=== PATIENT | female | born 1960 | race African-American/Black ===

== ENCOUNTER → 2019-01-13 | Day surgery (SDC) | payer OTHER ==
[~2019-01-13] MED LIST: AMBIEN10 MG PO; BENICAR40 MG PO; BUDESONIDE PO; BYSTOLIC20 MG PO; CLONIDINE1 EAC1 PO; DICYCLOMINE PO; FENTANYL CITRATE/PF 100MCG/2 ML INJ ONE; GLUCAGON FOR INJ 1 MG VIAL ONE; HCTZ PO; HUMIRA40 MG/0.8 INJ; LOSARTAN/HCTZ PO; LYRICA150 MG PO; MIDAZOLAM HCL 2 MG/2 ML VIAL ONE; NORCO 10-325 T1 EACH PO; NORVASC5 MG PO; PLAQUENIL200 MG PO; PREMARIN0.625 MG PO; PREMARIN1.25 MG PO; PROPOFOL IV EMULSION 10 MG/ML 50 ML VIAL ONE; ROBAXIN-750750 MG PO; SERTRALINE HCL100 MG PO; SOMA250 MG PO
[2019-01-13 08:48] LABS: WBC,FECAL (FECAL LACTOFERRIN) NEGATIVE (NEGATIVE)
[2019-01-13 09:40] VITALS: BP 169/98
--- OUTSIDE RECORDS SUMMARY | 2019-01-13 09:49 | XMS REPORT | Summary of Care ---
Author Author [facility] Address Unknown Phone Unavailable Encounter HQ Duy(FIN) [id number] Date(s): 12/05/18 - 01/03/19 [facility] Discharge Disposition: Home or Self Care Attending Physician: Oliver Jones Vital Signs No data available for this section Problem List Condition Effective Dates Status Health Status Informant Crohns Active disease(Confirmed) Acid Active reflux(Confirmed) Hypertension(Confirm Resolved ed) HTN Active (hypertension)(Confi rmed) Lupus(Confirmed) Active RA (rheumatoid Active arthritis)(Confirmed ) Torn Active meniscus(Confirmed) Allergies, Adverse Reactions, Alerts Substance Reaction Severity Status sulfa drugs Active Medications No data available for this section Results No data available for this section Immunizations No data available for this section Procedures Procedure Date Related Diagnosis Body Site Status Hysterectomy Completed Social History Social History Type Response Alcohol Past, Previous treatment: None. Smoking Status Former smoker; Exposure to Tobacco Smoke None; Cigarette Smoking Last 365 Days No; Reg Smoking Cessation Counseling No entered on: 10/04/18 Assessment and Plan No data available for this section
--- OUTSIDE RECORDS SUMMARY | 2019-01-13 09:49 | XMS REPORT | Summary of Care ---
Author Author [facility] Address Unknown Phone Unavailable Encounter HQ Fazalr_kaleruben(FIN) [id number] Date(s): 08/09/18 - 09/07/18 [facility] Discharge Disposition: Home or Self Care Attending Physician: Yosef Hanna MD Vital Signs No data available for this section Problem List Condition Effective Dates Status Health Status Informant Hypertension(Confirm Resolved ed) Allergies, Adverse Reactions, Alerts Substance Reaction Severity Status sulfa drugs Active Medications No data available for this section Results No data available for this section Immunizations No data available for this section Procedures No data available for this section Social History No data available for this section Assessment and Plan No data available for this section
--- OUTSIDE RECORDS SUMMARY | 2019-01-13 09:49 | XMS REPORT | Summary of Care ---
Author Author [facility] [place] Organization [facility] [place] Address Unknown Phone Unavailable Encounter HQ Encntr_alias(FIN) [id number] Date(s): 06/21/17 - 06/21/17 [facility] [place] [address] [place] [address]- [phone] Encounter Diagnosis Encounter for screening mammogram for malignant neoplasm of breast (Final) - 06/22/17 Discharge Disposition: Home or Self Care Attending Physician: Claudette Ramsey MD Vital Signs No data available for [...]
--- OUTSIDE RECORDS SUMMARY | 2019-01-13 09:49 | XMS REPORT | Summary of Care ---
Author Author [facility] Organization [facility] Address Unknown Phone Unavailable Encounter GUY Gordillo(MARINA) [id number] Date(s): 10/10/18 - 10/10/18 [facility] [address] [place] [address]- Discharge Disposition: Home or Self Care Attending Physician: Oliver Jones Referring Physician: Oliver Jones Vital Signs 1 2 3 Most recent to oldest [Reference Range]: 167.64 cm (10/04/18 11:40 AM) Height 98.0 DegF (10/04/18 11:40 AM) Temperature Oral [96.4-99.1 DegF] 151/76 mmHg *HI* (10/10/18 10:30 AM) 145/71 mmHg *HI* (10/10/18 10:00 AM) 144/72 mmHg *HI* (10/10/18 9:30 AM) Blood Pressure [90-140/60-90 mmHg] 18 BRMIN (10/10/18 8:15 AM) 15 BRMIN (10/10/18 8:00 AM) 14 BRMIN (10/10/18 7:45 AM) Respiratory Rate [14-20 BRMIN] 70 bpm (10/10/18 6:30 AM) 73 bpm (10/04/18 11:40 AM) Peripheral Pulse Rate [60-100 bpm] 134.091 kg (10/04/18 11:40 AM) Weight 47.71 m2 (10/04/18 11:40 AM) Body Mass Index Problem List Condition Effective Dates Status Health Status Informant Crohns Active disease(Confirmed) Acid Active reflux(Confirmed) Hypertension(Confirm Resolved ed) HTN Active (hypertension)(Confi rmed) Lupus(Confirmed) Active RA (rheumatoid Active arthritis)(Confirmed ) Torn Active meniscus(Confirmed) Allergies, Adverse Reactions, Alerts Substance Reaction Severity Status sulfa drugs Active Medications acetaminophen-hydrocodone 325 mg-5 mg oral tablet Route: PO, Dosing Weight 134.091, kg, Q4H, PRN Pain Score 4-6, Start date: 10/10 7:24:00 CDT, Duration: 30 day, Stop date: 11/09/18 7:23:00 CDT Start Date: 10/10/18 Stop Date: 10/10/18 Status: Discontinued acetaminophen-hydrocodone 325 mg-5 mg oral tablet 1 tab, PO, Q4-6H, PRN Pain, # 24 tab, 0 Refill(s) Start Date: 10/04/18 Stop Date: 10/09/18 Status: Ordered amLODIPine 5 mg oral tablet 5 mg=1 tab, PO, Daily, # 30 tab, 0 Refill(s) Start Date: 10/04/18 Status: Ordered ANES flumazenil 0.2 mg, Route: IVP, PRN, Dosing Weight 134.091, kg, PRN Benzodiazepine Reversal, Initial dose, Start date: 10/10/18 8:15:00 CDT, Duration: 30 day, Stop date: 8:14:00 CDT Start Date: 10/10/18 Stop Date: 10/10/18 Status: Discontinued ANES naloxone 0.4 mg, Route: IVP, Q2MIN, Dosing Weight 134.091, kg, PRN Narcotic Reversal, Sta rt date: 10/10/18 8:15:00 CDT, Duration: 8 doses or times, Stop date: Limited # of times Start Date: 10/10/18 Stop Date: 10/10/18 Status: Discontinued ANES ondansetron 4 mg, Route: IVP, ONCE, Dosing Weight 134.091, kg, PRN Nausea & Vomiting, Start date: 10/10/18 8:15:00 CDT Start Date: 10/10/18 Stop Date: 10/10/18 Status: Discontinued azaTHIOprine 50 mg oral tablet 100 mg=2 tab, PO, Daily, # 180 tab, 0 Refill(s) Start Date: 10/04/18 Status: Ordered budesonide 3 mg oral delayed release capsule 9 mg=3 cap, PO, QAM, 0 Refill(s) Start Date: 10/04/18 Status: Ordered ceFAZolin (ANES) Route: IV, Drug form: INJ, ONCE, Stop date: 10/10/18 7:29:00 CDT Start Date: 10/10/18 Stop Date: 10/10/18 Status: Completed cloNIDine 0.2 mg oral tablet 0.2 mg=1 tab, PO, BID, 0 Refill(s) Start Date: 10/04/18 Status: Ordered dexamethasone (ANES) Route: IV, Drug form: INJ, ONCE, Stop date: 10/10/18 7:49:00 CDT Start Date: 10/10/18 Stop Date: 10/10/18 Status: Completed dicyclomine 20 mg oral tablet 20 mg=1 tab, PO, QID, # 28 tab, 0 Refill(s) Start Date: 10/04/18 Stop Date: 10/11/18 Status: Ordered esmolol (ANES) Route: IV, Drug form: INJ, ONCE, Stop date: 10/10/18 7:49:00 CDT Start Date: 10/10/18 Stop Date: 10/10/18 Status: Completed fentaNYL (ANES) Route: IV, Drug form: INJ, ONCE, Stop date: 10/10/18 7:34:00 CDT Start Date: 10/10/18 Stop Date: 10/10/18 Status: Completed Humira 40 mg/0.8 mL subcutaneous solution 40 mg=0.8 ml, SUB-Q, Q14D, # 1 kit, 0 Refill(s) Start Date: 10/04/18 Status: Ordered hydrochlorothiazide-losartan 25 mg-100 mg oral tablet 1 tab, PO, Daily, # 30 tab, 0 Refill(s) Start Date: 10/04/18 Status: Ordered hydromorphone 0.3 mg, Route: IVP, Q3H, Dosing Weight 134.091, kg, PRN Pain Score 4-6, Start da te: 10/10/18 7:24:00 CDT, Duration: 30 day, Stop date: 11/09/18 7:23:00 CDT Start Date: 10/10/18 Stop Date: 10/10/18 Status: Discontinued hydroxychloroquine sulfate 200 mg oral tablet 400 mg=2 tab, PO, Daily, # 60 tab, 0 Refill(s) Start Date: 10/04/18 Status: Ordered Keflex 500 mg oral capsule 500 mg=1 cap, PO, QID, X 10 day, # 40 cap, 0 Refill(s) Start Date: 10/09/18 Stop Date: 10/19/18 Status: Ordered ketOROLAC 15 mg, Route: IVP, Q6H, Dosing Weight 134.091, kg, Start date: 10/10/18 12:00:00 CDT, Duration: 6 doses or times, Stop date: 10/11/18 18:00:00 CDT Start Date: 10/10/18 Stop Date: 10/10/18 Status: Discontinued ketOROLAC (ANES) IV, ONCE Start Date: 10/10/18 Stop Date: 10/10/18 Status: Completed Lactated Ringers Injection IV (ANES) 1000 mL Route: IV, Total Volume: 1,000, Start date: 10/10/18 6:42:00 CDT, Stop date: 08/25 7:42:00 CDT Start Date: 10/10/18 Stop Date: 10/10/18 Status: Completed Lactated Ringers Injection IV 1,000 mL 1,000 mL, Rate: 25 ml/hr, Infuse over: 40 hr, Route: IV, Dosing Weight 134.091 k g, Total Volume: 1,000, Start date: 10/10/18 6:49:00 CDT, Duration: 1 day, Stop date: 10/11/18 6:48:00 CDT, 2.54, m2 Start Date: 10/10/18 Stop Date: 10/10/18 Status: Discontinued lidocaine (ANES) Route: IV, Drug form: INJ, ONCE, Stop date: 10/10/18 7:34:00 CDT Start Date: 10/10/18 Stop Date: 10/10/18 Status: Completed Lyrica 100 mg oral capsule 100 mg=1 cap, PO, BID, # 60 cap, 1 Refill(s) Start Date: 10/04/18 Status: Ordered methocarbamol 750 mg oral tablet 1,500 mg=2 tab, PO, TID, 0 Refill(s) Start Date: 10/04/18 Status: Ordered midazolam (ANES) Route: IV, Drug form: SOLN, ONCE, Stop date: 10/10/18 7:34:00 CDT Start Date: 10/10/18 Stop Date: 10/10/18 Status: Completed morphine Sulfate 2 mg, Route: IVP, Q3H, Dosing Weight 134.091, kg, PRN Pain Score 1-3, Start date : 10/10/18 7:24:00 CDT, Duration: 30 day, Stop date: 11/09/18 7:23:00 CDT Start Date: 10/10/18 Stop Date: 10/10/18 Status: Discontinued ondansetron (ANES) Route: IV, Drug form: INJ, ONCE, Stop date: 10/10/18 7:49:00 CDT Start Date: 10/10/18 Stop Date: 10/10/18 Status: Completed oxyCODONE 5 mg oral tablet, immediate release 5 mg, 1 tab, Route: PO, POST OP, Dosing Weight 134.091, kg, Start date: 10/10/18 8:27:00 CDT, Duration: 30 day, Stop date: 11/09/18 8:26:00 CDT Start Date: 10/10/18 Stop Date: 10/10/18 Status: Completed Phenergan 12.5 mg, Route: IVPB, Q4H, Dosing Weight 134.091, kg, PRN Nausea & Vomiting, Start date: 10/10/18 7:24:00 CDT, Duration: 30 day, Stop date: 11/09/18 7:23:00 CDT Start Date: 10/10/18 Stop Date: 10/10/18 Status: Discontinued Premarin 1.25 mg oral tablet 1.25 mg=1 tab, PO, Daily, # 30 tab, 0 Refill(s) Start Date: 10/04/18 Status: Ordered propofol (ANES) Route: IV, Drug form: INJ, ONCE, Stop date: 10/10/18 7:34:00 CDT Start Date: 10/10/18 Stop Date: 10/10/18 Status: Completed rocuronium (ANES) Route: IV, Drug form: INJ, ONCE, Stop date: 10/10/18 7:34:00 CDT Start Date: 10/10/18 Stop Date: 10/10/18 Status: Completed sertraline 100 mg oral tablet 100 mg=1 tab, PO, Daily, # 30 tab, 0 Refill(s) Start Date: 10/04/18 Status: Ordered succinylcholine (ANES) Route: IV, Drug form: INJ, ONCE, Stop date: 10/10/18 7:34:00 CDT Start Date: 10/10/18 Stop Date: 10/10/18 Status: Completed tramadol 50 mg, Route: PO, Drug form: TAB, Q6H, Dosing Weight 134.091, kg, PRN Pain Score 1-3, Start date: 10/10/18 7:24:00 CDT, Duration: 30 day, Stop date: 11/09/18 7: 23:00 CDT Start Date: 10/10/18 Stop Date: 10/10/18 Status: Discontinued triamcinolone topical 0.025% cream TOP, TID, 0 Refill(s) Start Date: 10/04/18 Status: Ordered Vitamin D3 5000 intl units oral tablet 5,000 IntlUnit=1 tab, PO, Daily, 0 Refill(s) Start Date: 10/04/18 Status: Ordered Zofran 4 mg, Route: IV, Drug form: INJ, Q4H, Dosing Weight 134.091, kg, PRN Nausea, Sta rt date: 10/10/18 7:24:00 CDT, Duration: 30 day, Stop date: 11/09/18 7:23:00 CDT Start Date: 10/10/18 Stop Date: 10/10/18 Status: Discontinued Results Most recent to 1 oldest [Reference Range]: Neutrophils # 5.1 K/CMM [1.5-8.1 K/CMM] (10/04/18 11:43 AM) Lymphocytes # 2.0 K/CMM [1.0-5.5 K/CMM] (10/04/18 11:43 AM) Monocytes # [0.0-0.8 0.9 K/CMM K/CMM] *HI* (10/04/18 11:43 AM) Eosinophils # 0.1 K/CMM [0.0-0.5 K/CMM] (10/04/18 11:43 AM) Basophils # [0.0-0.2 0.1 K/CMM K/CMM] (5/29/19 11:43 AM) eGFR 63 mL/min/1.73m2 1 *NA* (10/04/18 AM) AGAP [10.0-20.0 7.2 mEq/L mEq/L] *LOW* (10/04/18 AM) Basophils [0.0-1.0 1.2 % %] *HI* (10/04/18 AM) BUN [7-22 mg/dL] 21 mg/dL (10/04/18 AM) Calcium Lvl 9.1 mg/dL [8.5-10.5 mg/dL] (10/04/18 AM) Chloride Lvl [95-109 108 mEq/L mEq/L] (10/04/18 AM) CO2 [24-32 mEq/L] 30 mEq/L (10/04/18 AM) Creatinine Lvl 1.12 mg/dL [0.50-1.40 mg/dL] (10/04/18 AM) Eosinophils [0.0-4.0 1.6 % %] (10/04/18 AM) Glucose Lvl [70-99 75 mg/dL mg/dL] (10/04/18 AM) Hct [36.0-48.0 %] 39.3 % (10/04/18 AM) Hgb [12.0-16.0 g/dL] 12.9 g/dL (10/04/18 AM) Potassium Lvl 3.2 mEq/L [3.5-5.1 mEq/L] *LOW* (10/04/18 AM) Lymphocytes 24.4 % [20.0-40.0 %] (10/04/18 AM) MCH [27.0-31.0 pg] 28.3 pg (10/04/18 AM) MCHC [32.0-36.0 32.8 g/dL g/dL] (10/04/18 AM) MCV [80.0-98.0 fL] 86.2 fL (10/04/18 AM) Monocytes [2.0-12.0 10.5 % %] (5/29/19 11:43 AM) MPV [7.4-10.4 fL] 8.4 fL (10/04/18 11:43 AM) Sodium Lvl [135-145 142 mEq/L mEq/L] (10/04/18 11:43 AM) Platelet [133-450 277 K/CMM K/CMM] (10/04/18 11:43 AM) Segs [45.0-75.0 %] 62.3 % (10/04/18 11:43 AM) RBC [4.20-5.40 4.56 M/CMM M/CMM] (10/04/18 11:43 AM) RDW [11.5-14.5 %] 14.4 % (10/04/18 11:43 AM) WBC [3.7-10.4 K/CMM] 8.3 K/CMM (10/04/18 11:43 AM) 1Result Comment: The eGFR is calculated using the CKD-EPI formula. In most young, healthy individuals the eGFR will be >90 mL/min/1.73m2. The eGFR declines with age. An eGFR of 60-89 may be normal in some populations, particularly the elderly, for whom the CKD-EPI formula has not been extensively validated. Use of the eGFR is not recommended in the following populations: Individuals with unstable creatinine concentrations, including patients and those with serious co-morbid conditions. Patients with extremes in muscle mass or diet. The data above are obtained from the National Kid[employer] Education Program ( NKDEP) which additionally recommends that when the eGFR is used in patients with extremes of body mass index for purposes of drug dosing, the eGFR should be mul tiplied by the estimated BMI. Immunizations No data available for this section [...]
--- OUTSIDE RECORDS SUMMARY | 2019-01-13 09:49 | XMS REPORT | Continuity of Care Document ---
Author Author [employer] Address Unknown Phone Unavailable Care Team Providers Care Longwall Shearer Operator Name Role Phone [employer] Unavailable Unavailable Problems Problem Status Onset Date Classification Date Reported Comments Source KNEE Active 10/20/2018 [facility] S83.231A Active 10/10/2018 [facility] KNEE ARTHROSCOPY Active 09/26/2018 [facility] LBP, EBER HIP PAIN,LT KNEE Active 08/02/2018 [facility] M25.551 - PAIN IN RIGHT HIP Active 07/04/2018 ISI Mastersa Encounter for screening mammogram for malignant neoplasm of breast 06/23/2017 09/27/2017 ISI Lewis Z12.39 - ENCOUNTER FOR OTH SCREENING FO Active 06/21/2017 ISI Lewis BURN Active 08/29/2012 [facility] Hypertensive disorder, systemic arterial (disorder) Resolved Problem 01/05/2019 ISI Lewis,[facility] Hypertension Resolved Problem 08/31/2012 [facility] Crohn's disease (disorder) Active Problem 01/05/2019 [facility] Gastroesophageal reflux disease (disorder) Active Problem 01/05/2019 [facility] Lupus erythematosus (disorder) Active Problem 01/05/2019 [facility] Rheumatoid arthritis (disorder) Active Problem 01/05/2019 [facility] Tear of meniscus of knee (disorder) Active Problem 01/05/2019 [facility] Medications Medication Details Route Status Patient Instructions Ordering Provider Order Date Source Ketorolac 15 mg, Route: IVP, Q6H, Dosing Weight 134.091, kg, Start date: 10/10/18 12:00:00 CDT, Duration: 6 doses or times, Stop date: 10/11/18 18:00:00 CDT Inactive 10/10/2018 [facility] Oxycodone Hydrochloride 5 MG Oral Tablet 5 mg, 1 tab, Route: PO, POST OP, Dosing Weight 134.091, kg, Start date: 10/10/18 8:27:00 CDT, Duration: 30 day, Stop date: 11/09/18 8:26:00 CDT Inactive 10/10/2018 [facility] Ondansetron 4 mg, Route: IVP, ONCE, Dosing Weight 134.091, kg, PRN Nausea & Vomiting, Start date: 10/10/18 8:15:00 CDT Inactive 10/10/2018 [facility] Flumazenil 0.2 mg, Route: IVP, PRN, Dosing Weight 134.091, kg, PRN Benzodiazepine Reversal, Initial dose, Start date: 10/10/18 8:15:00 CDT, Duration: 30 day, Stop date: 11/09/18 8:14:00 CDT Inactive 10/10/2018 [facility] Naloxone 0.4 mg, Route: IVP, Q2MIN, Dosing Weight 134.091, kg, PRN Narcotic Reversal, Start date: 10/10/18 8:15:00 CDT, Duration: 8 doses or times, Stop date: Limited # of times Inactive 10/10/2018 [facility] ketOROLAC (ANES) IV, ONCE Inactive 10/10/2018 [facility] dexamethasone (ANES) Route: IV, Drug form: INJ, ONCE, Stop date: 10/10/18 7:49:00 CDT Inactive 10/10/2018 [facility] ondansetron (ANES) Route: IV, Drug form: INJ, ONCE, Stop date: 10/10/18 7:49:00 CDT Inactive 10/10/2018 [facility] esmolol (ANES) Route: IV, Drug form: INJ, ONCE, Stop date: 10/10/18 7:49:00 CDT Inactive 10/10/2018 [facility] succinylcholine (ANES) Route: IV, Drug form: INJ, ONCE, Stop date: 10/10/18 7:34:00 CDT Inactive 10/10/2018 [facility] rocuronium (ANES) Route: IV, Drug form: INJ, ONCE, Stop date: 10/10/18 7:34:00 CDT Inactive 10/10/2018 [facility] propofol (ANES) Route: IV, Drug form: INJ, ONCE, Stop date: 10/10/18 7:34:00 CDT Inactive 10/10/2018 [facility] fentaNYL (ANES) Route: IV, Drug form: INJ, ONCE, Stop date: 10/10/18 7:34:00 CDT Inactive 10/10/2018 [facility] lidocaine (ANES) Route: IV, Drug form: INJ, ONCE, Stop date: 10/10/18 7:34:00 CDT Inactive 10/10/2018 [facility] midazolam (ANES) Route: IV, Drug form: SOLN, ONCE, Stop date: 10/10/18 7:34:00 CDT Inactive 10/10/2018 [facility] ceFAZolin (ANES) Route: IV, Drug form: INJ, ONCE, Stop date: 10/10/18 7:29:00 CDT Inactive 10/10/2018 [facility] Phenergan 12.5 mg, Route: IVPB, Q4H, Dosing Weight 134.091, kg, PRN Nausea & Vomiting, Start date: 10/10/18 7:24:00 CDT, Duration: 30 day, Stop date: 11/09/18 7:23:00 CDT Inactive 10/10/2018 [facility] Zofran 4 mg, Route: IV, Drug form: INJ, Q4H, Dosing Weight 134.091, kg, PRN Nausea, Start date: 10/10/18 7:24:00 CDT, Duration: 30 day, Stop date: 11/09/18 7:23:00 CDT Inactive 10/10/2018 [facility] Acetaminophen 325 MG / Hydrocodone Bitartrate 5 MG Oral Tablet Route: PO, Dosing Weight 134.091, kg, Q4H, PRN Pain Score 4-6, Start date: 10/10/18 7:24:00 CDT, Duration: 30 day, Stop date: 11/09/18 7:23:00 CDT Inactive 10/10/2018 [facility] Tramadol 50 mg, Route: PO, Drug form: TAB, Q6H, Dosing Weight 134.091, kg, PRN Pain Score 1-3, Start date: 10/10/18 7:24:00 CDT, Duration: 30 day, Stop date: 11/09/18 7:23:00 CDT Inactive 10/10/2018 [facility] Hydromorphone 0.3 mg, Route: IVP, Q3H, Dosing Weight 134.091, kg, PRN Pain Score 4-6, Start date: 10/10/18 7:24:00 CDT, Duration: 30 day, Stop date: 11/09/18 7:23:00 CDT Inactive 10/10/2018 [facility] Morphine 2 mg, Route: IVP, Q3H, Dosing Weight 134.091, kg, PRN Pain Score 1-3, Start date: 10/10/18 7:24:00 CDT, Duration: 30 day, Stop date: 11/09/18 7:23:00 CDT Inactive 10/10/2018 [facility] Calcium Chloride 0.0014 MEQ/ML / Potassium Chloride 0.004 MEQ/ML / Sodium Chloride 0.103 MEQ/ML / Sodium Lactate 0.028 MEQ/ML Injectable Solution 1,000 mL, Rate: 25 ml/hr, Infuse over: 40 hr, Route: IV, Dosing Weight 134.091 kg, Total Volume: 1,000, Start date: 10/10/18 6:49:00 CDT, Duration: 1 day, Stop date: 10/11/18 6:48:00 CDT, 2.54, m2 Inactive 10/10/2018 [facility] Lactated Ringers Injection IV (ANES) 1000 mL Route: IV, Total Volume: 1,000, Start date: 10/10/18 6:42:00 CDT, Stop date: 10/10/18 7:42:00 CDT Inactive 10/10/2018 [facility] Cephalexin 500 MG Oral Capsule [Keflex] 500 mg=1 cap, PO, QID, X 10 day, # 40 cap, 0 Refill(s) Active 10/09/2018 [facility] Triamcinolone Acetonide 0.25 MG/ML Topical Cream TOP, TID, 0 Refill(s) Active 10/04/2018 [facility] sertraline 100 mg oral tablet 100 mg=1 tab, PO, Daily, # 30 tab, 0 Refill(s) Active 10/04/2018 [facility] Vitamin D3 5000 intl units oral tablet 5,000 IntlUnit=1 tab, PO, Daily, 0 Refill(s) Active 10/04/2018 [facility] pregabalin 100 MG Oral Capsule [Lyrica] 100 mg=1 cap, PO, BID, # 60 cap, 1 Refill(s) Active 10/04/2018 [facility] Hydrochlorothiazide 25 MG / Losartan Potassium 100 MG Oral Tablet 1 tab, PO, Daily, # 30 tab, 0 Refill(s) Active 10/04/2018 [facility] Estrogens, Conjugated (HALF-WAY) 1.25 MG Oral Tablet [Premarin] 1.25 mg=1 tab, PO, Daily, # 30 tab, 0 Refill(s) Active 10/04/2018 [facility] methocarbamol 750 mg oral tablet 1,500 mg=2 tab, PO, TID, 0 Refill(s) Active 10/04/2018 [facility] Hydroxychloroquine Sulfate 200 MG Oral Tablet 400 mg=2 tab, PO, Daily, # 60 tab, 0 Refill(s) Active 10/04/2018 [facility] Acetaminophen 325 MG / Hydrocodone Bitartrate 5 MG Oral Tablet 1 tab, PO, Q4-6H, PRN Pain, # 24 tab, 0 Refill(s) Active 10/04/2018 [facility] 0.8 ML adalimumab 50 MG/ML Prefilled Syringe [Humira] 40 mg=0.8 ml, SUB-Q, Q14D, # 1 kit, 0 Refill(s) Active 10/04/2018 [facility] dicyclomine 20 mg oral tablet 20 mg=1 tab, PO, QID, # 28 tab, 0 Refill(s) Active 10/04/2018 [facility] amLODIPine 5 mg oral tablet 5 mg=1 tab, PO, Daily, # 30 tab, 0 Refill(s) Active 10/04/2018 [facility] Clonidine Hydrochloride 0.2 MG Oral Tablet 0.2 mg=1 tab, PO, BID, 0 Refill(s) Active 10/04/2018 [facility] budesonide 3 mg oral delayed release capsule 9 mg=3 cap, PO, QAM, 0 Refill(s) Active 10/04/2018 [facility] azaTHIOprine 50 mg oral tablet 100 mg=2 tab, PO, Daily, # 180 tab, 0 Refill(s) Active 10/04/2018 [facility] Silvadene 1% topical cream 1 appl, Route: TOP, ONCE, Priority: Stat, Start date: 08/29/12 10:58:00, Stop date: 08/29/12 10:58:00 TOP No Longer Active Short 08/29/2012 [facility] [place] 10/325 oral tablet 1 tab, Route: PO, Drug Form: TAB, Dosing Weight 131.818, kg, ONCE, Start date: 08/29/12 10:56:00, Stop date: 08/29/12 10:56:00 PO No Longer Active Short 08/29/2012 [facility] [place] 10/325 oral tablet 1 tab, PO, Q6H, PRN, 15 tab, for pain, Substitution Allowed, Maintenance PO Active Short 08/29/2012 [facility] Silvadene 1% topical cream 1 appl, TOP, BID, 20 gm, Substitution Allowed, CRM TOP Active Short 08/29/2012 [facility] morphine Sulfate 2 mg, Route: IVP, Drug form: INJ, ONCE, Dosing Weight 131.818, kg, Priority: STAT, Start date: 08/29/12 9:38:00, Stop date: 08/29/12 9:38:00 IVP No Longer Active Short 08/29/2012 [facility] Zofran 4 mg, Route: IVP, Drug form: INJ, ONCE, Dosing Weight 131.818, kg, Priority: STAT, Start date: 08/29/12 9:09:00, Stop date: 08/29/12 9:09:00 IVP No Longer Active Short 08/29/2012 [facility] morphine Sulfate 4 mg, Route: IVP, ONCE, Dosing Weight 131.818, kg, Start date: 08/29/12 9:08:00, Stop date: 08/29/12 9:08:00 IVP No Longer Active Short 08/29/2012 [facility] NS (Bolus) IV 1000 mL 1,000 mL, Rate: 1,000 ml/hr, Infuse over: 1 hr, Route: IV, Dosing Weight 131.818 kg, Total Volume: 1,000, Priority: STAT, Start date: 08/29/12 9:08:00, Duration: 1 doses or times, Stop date: 08/29/12 10:07:00, Bolus DoseBolus Dose IV No Longer Active Short 08/29/2012 [facility] Allergies, Adverse Reactions, Alerts Substance Category Reaction Severity Reaction type Status Date Reported Comments Source sulfa drugs Assertion Drug allergy Active [facility] Immunizations No Data Provided for This Section Results Order Name Results Value Reference Range Date Interpretation Comments Source CHEM PANEL eGFR 63 10/04/2018 Result Comment: The eGFR is calculated using the [...] from the National Kidney Disease Education Program (NKDEP) which additionally recommends that when the eGFR is used in patients with extremes of body mass index for purposes of drug dosing, the eGFR should be multiplied by the estimated BMI. [facility] CHEM PANEL Sodium Lvl 142 135 - 145 10/04/2018 [facility] CHEM PANEL Potassium Lvl 3.2 3.5 - 5.1 10/04/2018 [facility] CHEM PANEL Glucose Lvl 75 70 - 99 10/04/2018 [facility] CHEM PANEL Creatinine Lvl 1.12 0.50 - 1.40 10/04/2018 [facility] CHEM PANEL BUN 21 7 - 22 10/04/2018 [facility] CHEM PANEL CO2 30 24 - 32 10/04/2018 [facility] CHEM PANEL Chloride Lvl 108 95 - 109 10/04/2018 [facility] CHEM PANEL Calcium Lvl 9.1 8.5 - 10.5 10/04/2018 [facility] CHEM PANEL AGAP 7.2 10.0 - 20.0 10/04/2018 [facility] HEMATOLOGY Eosinophils # 0.1 0.0 - 0.5 10/04/2018 [facility] HEMATOLOGY Basophils # 0.1 0.0 - 0.2 10/04/2018 [facility] HEMATOLOGY Monocytes # 0.9 0.0 - 0.8 10/04/2018 [facility] HEMATOLOGY Neutrophils # 5.1 1.5 - 8.1 10/04/2018 [facility] Lymphocytes 24.4 20.0 - 40.0 10/04/2018 [facility] Lymphocytes # 2.0 1.0 - 5.5 10/04/2018 [facility] HEMATOLOGY Basophils 1.2 0.0 - 1.0 10/04/2018 [facility] Monocytes 10.5 2.0 - 12.0 10/04/2018 [facility] HEMATOLOGY Eosinophils 1.6 0.0 - 4.0 10/04/2018 [facility] Segs 62.3 45.0 - 75.0 10/04/2018 [facility] WBC 8.3 3.7 - 10.4 10/04/2018 [facility] RBC 4.56 4.20 - 5.40 10/04/2018 [facility] MCH 28.3 27.0 - 31.0 10/04/2018 [facility] MCHC 32.8 32.0 - 36.0 10/04/2018 [facility] RDW 14.4 11.5 - 14.5 10/04/2018 [facility] MPV 8.4 7.4 - 10.4 10/04/2018 [facility] Platelet 277 133 - 450 10/04/2018 [facility] MCV 86.2 80.0 - 98.0 10/04/2018 [facility] Hgb 12.9 12.0 - 16.0 10/04/2018 [facility] Hct 39.3 36.0 - 48.0 10/04/2018 [facility] Pathology Reports No Data Provided for This Section Diagnostic Reports Report Value Date Source Knee 1-2 Views unilateral DX EXAM: Knee 1-2 Views unilateral DX HISTORY: - M25.562 Pain in left knee COMPARISON: None 2 views of the left knee. FINDINGS: There is moderate medial tibiofemoral joint space narrowing with subchondral sclerosis of the medial tibial plateau. There is moderate tricompartmental osteophyte formation and trace joint effusion. IMPRESSION: Tricompartmental osteophyte formation and medial tibiofemoral degenerative change. 07/04/2018 KELLY Lewis Hip bilat w pelvis and both lat hips DX EXAM: Hip bilat w pelvis and both lat hips DX HISTORY: - M25.551 Pain in right hip; M25.552 Pain in left hip COMPARISON: None AP pelvis and AP and lateral views of both hips. FINDINGS: There is mild joint space narrowing of the left hip. Moderate osteophyte formation of both hips. No fracture is seen. Alignment is normal. IMPRESSION: Moderate bilateral hip osteophyte formation. Mild left hip joint space narrowing. 07/04/2018 ISI Lewis Breast Mammo Scrn EBER incl CAD MA BILATERAL DIGITAL SCREENING MAMMOGRAM WITH CAD: 06/21/2017 CLINICAL: Routine/Screening. Current study was evaluated with a Computer Aided Detection (CAD) system. COMPARISON:No prior exams were available for comparison. TECHNIQUE: Mammographic views were obtained using digital acquisition. Current study was also evaluated with a Computer Aided Detection (CAD) system. FINDINGS: There are scattered fibroglandular densities in both breasts. No significant masses, calcifications, or other findings are seen in either breast. IMPRESSION: NEGATIVE RECOMMENDATION:There is no mammographic evidence of malignancy. A 1 year screening mammogram is recommended.(06/22/2018) This exam was interpreted at [id number] at [facility]. Professional services are provided by the [facility]. Lena Nieto M.D. to/penrad:06/22/2017 08:47:47 Land Commissioner(s): RT Flash(R)(M), [facility] letter sent: BI-RADS 1/2 Mammogram BI-RADS: 1 Negative 06/21/2017 ISI Lewis Consultation Notes No Data Provided for This Section Discharge Summaries No Data Provided for This Section History and Physicals No Data Provided for This Section Vital Signs Vital Sign Value Date Comments Source Systolic (mm Hg) 151 10/10/2018 [facility] Diastolic (mm Hg) 76 10/10/2018 [facility] Systolic (mm Hg) 145 10/10/2018 [facility] Diastolic (mm Hg) 71 10/10/2018 [facility] Systolic (mm Hg) 144 10/10/2018 [facility] Diastolic (mm Hg) 72 10/10/2018 [facility] Respitory Rate 18 10/10/2018 [facility] Respitory Rate 15 10/10/2018 [facility] Respitory Rate 14 10/10/2018 [facility] Heart Rate 70 10/10/2018 [facility] Weight 134.091 10/04/2018 [facility] Height 167.64 cm 10/04/2018 [facility] BMI Calculated 47.71 10/04/2018 [facility] Heart Rate 73 10/04/2018 [facility] Temperature Oral (F) 98.0 F 10/04/2018 [facility] Height 167.64 cm 08/29/2012 [facility] Weight 131.818 08/29/2012 [facility] Encounters Location Location Details Encounter Type Encounter Number Reason For Visit Attending Provider ADM Date DC Date Status Source [facility] Emergency [id number] ROSENDO SÁNCHEZ 08/29/2012 08/29/2012 Discharged [facility] [place] [facility] [id number] Claudette Ramsey 06/21/2017 06/22/2017 [facility] [place] [facility] [place] [facility] [id number] Hal Vela 07/04/2018 07/05/2018 [facility] [place] [facility] OP Therapy Patients [id number] Basetaran Hamid 08/09/2018 09/08/2018 [facility] Day Surgery [id number] Oliver Jones 10/10/2018 10/10/2018 [facility] OP Therapy Patients [id number] Oliver Jones 11/03/2018 12/03/2018 [facility] OP Therapy Patients [id number] Oliver Jones 12/05/2018 01/04/2019 [facility] Procedures Procedure Code Date Perfomer Comments Source Hysterectomy [id number] [facility] Assessment and Plan No Data Provided for This Section Plan of Care No Data Provided for This Section Social History Social History Date Source Social History TypeResponse Alcohol Past, Previous treatment: None. Smoking Status Former smoker; Exposure to Tobacco Smoke None; Cigarette Smoking Last 365 Days No; Reg Smoking Cessation Counseling No entered on: 10/04/18 10/04/2018 [facility] Social History TypeResponse Alcohol Past, Previous treatment: None. Smoking Status Former smoker; Exposure to Tobacco Smoke None; Cigarette Smoking Last 365 Days No; Reg Smoking Cessation Counseling No entered on: 10/04/18 10/04/2018 [facility] No data available for this section 07/05/2018 [facility] [place] Family History No Data Provided for This Section Advance Directives No Data Provided for This Section Functional Status No Data Provided for This Section
--- OUTSIDE RECORDS SUMMARY | 2019-01-13 09:49 | XMS REPORT | CCD ---
Author Author Auto Generated Organization [facility] Address Unknown Phone Unavailable Care Team Providers Care Poultry Culler Name Role Phone Marky Ware CP Allergies, Adverse Reactions, Alerts Substance Reaction Status sulfa drugs Active Problem List Condition Effective Dates Status Hypertension Resolved Medications Medication Instructions Start Date End Date Status [place] 10/325 oral 1 tab, Route: PO, Drug Form: TAB, 08/29/2012 08/29/2012 Completed tablet Dosing Weight 131.818, kg, ONCE, Start date: 08/29/12 10:56:00, Stop date: 08/29/12 10:56:00 Zofran 4 mg, Route: IVP, Drug form: INJ, 08/29/2012 08/29/2012 Completed ONCE, Dosing Weight 131.818, kg, Priority: STAT, Start date: 08/29/12 9:09:00, Stop date: 08/29/12 9:09:00 morphine Sulfate 4 mg, Route: IVP, ONCE, Dosing 08/29/2012 08/29/2012 Completed Weight 131.818, kg, Start date: 08/29/12 9:08:00, Stop date: 08/29/12 9:08:00 NS (Bolus) IV 1000 1,000 mL, Rate: 1,000 ml/hr, Infuse 08/29/2012 08/29/2012 Completed mL over: 1 hr, Route: IV, Dosing Weight 131.818 kg, Total Volume: 1,000, Priority: STAT, Start date: 08/29/12 9:08:00, Duration: 1 doses or times, Stop date: 08/29/12 10:07:00, Bolus Dose Bolus Dose [place] 10/325 oral 1 tab, PO, Q6H, PRN, 15 tab, for 08/29/2012 Ordered tablet pain, Substitution Allowed, Maintenance Silvadene 1% topical 1 appl, TOP, BID, 20 gm, 08/29/2012 Ordered cream Substitution Allowed, CRM Silvadene 1% topical 1 appl, Route: TOP, ONCE, Priority: 08/29/2012 08/29/2012 Completed cream Stat, Start date: 08/29/12 10:58:00, Stop date: 08/29/12 10:58:00 morphine Sulfate 2 mg, Route: IVP, Drug form: INJ, 08/29/2012 08/29/2012 Completed ONCE, Dosing Weight 131.818, kg, Priority: STAT, Start date: 08/29/12 9:38:00, Stop date: 08/29/12 9:38:00 Vital Signs Most recent to oldest [Reference Range]: 1 Height 167.64 cm (08/29/2012 08:58:00) Weight 131.818 kg (08/29/2012 08:58:00)
--- OUTSIDE RECORDS SUMMARY | 2019-01-13 09:49 | XMS REPORT | Summary of Care ---
Author Author [facility] [place] Organization [facility] [place] Address Unknown Phone Unavailable Encounter HQ Encntr_kaleruben(FIN) [id number] Date(s): 07/04/18 - 07/04/18 [facility] [place] [address] [place] [address]- 7 [phone] Discharge Disposition: Home or Self Care Attending Physician: Hal Vela MD Referring Physician: Hal Vela MD Vital Signs No data available for [...]
--- OUTSIDE RECORDS SUMMARY | 2019-01-13 09:50 | XMS REPORT | Summary of Care ---
Author Author [facility] Address Unknown Phone Unavailable Encounter HQ Duy(FIN) [id number] Date(s): 11/03/18 - 12/02/18 [facility] Discharge Disposition: Home or Self Care [...]
--- OUTSIDE RECORDS SUMMARY | 2019-01-13 09:50 | XMS REPORT ---
Author Author [facility] Address Unknown Phone Unavailable Care Team Providers Care Sharepoint Trainer Name Role Phone Unavailable Unavailable Payers Payer Name Policy Type Policy Number Effective Date Expiration Date Problems This patient has no known problems. Allergies, Adverse Reactions, Alerts This patient has no known allergies or adverse reactions. Medications This patient has no known medications. Encounters Start Date/Time End Date/Time Encounter Type Admission Type Attending [facility] Care Department Encounter ID 2018-10-10 05:21:00 2018-10-10 05:21:00 Outpatient [id number] Results Test Description Test Time Test Comments Text Results Atomic Results Result Comments - MRI LW JNT W/O CONT RT 2018-09-13 10:49:00 FAX: Pavel Lr [phone] [place]: St: REG Name: JOSE RAMON SALAZAR [facility] : 1960 Age/S: 58/F [address] Unit #: [id number] Loc: [place] [address] Phys: Pavel Cifuentes DO Acct: [id number] Dis Date: Status: REG CLI PHONE #: [phone] Exam Date: 09/13/2018 0938 FAX #: [phone] Reason: M17.11 EXAMS: CPT CODE: [id number] MRI LW JNT W/[place] [id number] HISTORY: . COMPARISON: None available. MRI right knee without contrast: The quadriceps and the patellar tendons are intact. Infrapatellar Hoffa's fat, prefemoral fat and the quadriceps fat are without impingement or edema. No bone bruise or acute fracture or osteochondral lesions are noted. Intact ACL and PCL. Large radial tear of the anterior horn of the medial meniscus with moderate truncation and meniscal extrusion into the medial recess. Mucoid degeneration of the posterior horn without tear. Lateral meniscus demonstrating radial tears of the free edge of both the anterior and posterior horns with mild truncation. MCL and LCL complex are symmetrical and normal. Popliteus tendon is unremarkable. The musculature demonstrating normal signal. Mild subcutaneous edema. Medial and the lateral retinaculum are intact. Multiple cartilaginous defects within the medial and the lateral patellar facets are near full-thickness. Trochlear cartilage defects as well. Marked thinning of the articular cartilage in the weightbearing portion bilaterally. Physiologic joint fluid. No popliteal cyst. IMPRESSION: Large radial tear of the anterior horn of the medial meniscus with meniscal extrusion into the medial recess. Degenerative signal and mucoid degeneration of the posterior horn. Small radial tears of the free edge of both anterior and posterior horns of the lateral meniscus with mild truncation. Near full-thickness defects of both medial and lateral patellar facet cartilage and thinning of the articular cartilage of both the medial and the lateral compartment in the weightbearing portions. Intact ACL and PCL and LCL and MCL complex. No popliteal cyst. at 1049 Reported and signed by: Job Trivedi M.D. PAGE 1 Signed Report (CONTINUED) FAX: Pavel Lr [phone] [place]: B St: REG Name: JOSE RAMON SALAZAR [facility] : 1960 Age/S: 58/F [address] Unit #: [id number] Loc: V.MRI [place], [place] [address] Phys: Pavel Cifuentes DO Acct: [id number] Dis Date: Status: REG CLI PHONE #: [phone] Exam Date: 09/13/2018 0938 FAX #: [phone] Reason: M17.11 EXAMS: CPT CODE: [id number] MRI LW JNT W/[place] [id number] <Continued> CC: Pavel Cifuentes Technologist: Cherelle Cooper)(MR) Trnscrd Date/Time/By: 09/13/2018 (1049) : By: [email or web address] Orig Print D/T: S: 09/13/2018 (5037) PAGE 2 Signed Report
--- NOTE | 2019-01-13 12:12 | Operative Report ---
DATE OF PROCEDURE: 01/13/2019 SURGEON: Pritesh Bolden MD PROCEDURES: EGD with biopsies and colonoscopy with biopsies. INDICATIONS FOR EGD: Upper abdominal pain, heartburn. INDICATIONS FOR COLONOSCOPY: History of Crohn disease, bright red blood per rectum. MEDICATIONS: The patient was done under MAC, please see anesthesiologist's note. PROCEDURE IN DETAIL: With the patient in left lateral decubitus position, a flexible fiberoptic Olympus gastroscope was introduced into the esophagus under direct visualization without any difficulty. There was some patchy erythema noted in distal esophagus. The scope was then advanced with ease into the stomach traversing a small sliding hiatal hernia. The mucosa overlying the antrum and the body revealed some patchy intense erythema and low-grade to moderate edema, and biopsies were obtained and sent to stain for H. pylori. Pylorus was of normal contour and shape, it was intubated with ease and the scope was advanced all the way to the second portion of the duodenum. Biopsies were obtained from the second portion and the duodenal bulb to rule out sprue. The scope was then withdrawn back into the stomach and retroflexed and mucosa overlying the fundus and the cardia appeared to be within normal limits. The scope was then straightened out, it was subsequently withdrawn, and the patient tolerated the procedure well. IMPRESSION: 1. Distal esophagitis, mild. 2. Small sliding hiatal hernia. 3. Gastritis, biopsied, biopsies sent to stain for Helicobacter pylori. 4. Rule out sprue. PLAN: Follow up histology. Initiate Protonix 40 mg one p.o. q.a.m. before meals. The patient was then turned around and after adequate lubrication of the anal canal, a flexible fiberoptic Olympus colonoscope was inserted into the rectum with ease and advanced all the way to the cecum. Mucosa overlying the cecum revealed some diffuse erythema and low-grade edema and biopsies were obtained. The ileocecal valve was intubated and the scope was advanced into the terminal ileum. The mucosa overlying the terminal ileum revealed some diffuse erythema and low-grade edema. No ulcerations were noted and no strictures, biopsies were obtained. The scope was then withdrawn back into the colon. It was then withdrawn slowly, mucosa overlying the ascending and the transverse grossly was unremarkable. There was some mild patchy erythema and low-grade edema noted in the descending and a segment of the descending colon and biopsies were obtained. Diverticular disease was noted in the distal descending and the sigmoid colon. The rectum appeared to be within normal limits. The scope was then retroflexed into the distal rectum and moderate-sized internal hemorrhoids were noted, none of which was actively bleeding. The scope was then straightened out, it was subsequently withdrawn, and the patient tolerated the procedure well. IMPRESSION: 1. Mild segmental colitis, descending colon. 2. Diverticulosis. 3. Internal hemorrhoids, none actively bleeding. PLAN: Follow up histology. Follow up stool studies. Check IBD panel, CRP, and sedimentation rate. Continue Humira 40 mg subcutaneous q.2 weeks. We will need to check a trough level of Humira and if level is inadequate, we will need to modify dose to weekly. We will try to taper the budesonide and maximize her anti-TNF therapy. MD KATIE Hodges/TK /[id number] cc: Pavel Cifuentes DO
[2019-01-13 14:49] LABS: C DIFFICILE TOXIN A&B AMP PROB NEGATIVE (NEGATIVE)
== END | disposition home or self-care (01) ==
LOC: OR 06:00
PROVIDERS: ATTEND Internal Medicine Gastroenterology
DX: K57.30 Diverticulosis of large intestine without perforation or abscess without bleeding (principal); K29.50 Unspecified chronic gastritis without bleeding; R12 Heartburn; R14.0 Abdominal distension (gaseous); K52.9 Noninfective gastroenteritis and colitis, unspecified; K92.1 Melena; E66.01 Morbid (severe) obesity due to excess calories; Z71.3 Dietary counseling and surveillance; G47.33 Obstructive sleep apnea (adult) (pediatric); I10 Essential (primary) hypertension; M06.9 Rheumatoid arthritis, unspecified; K50.90 Crohn's disease, unspecified, without complications; Z88.2 Allergy status to sulfonamides; Z68.42 Body mass index [BMI] 45.0-49.9, adult; M79.7 Fibromyalgia; M32.9 Systemic lupus erythematosus, unspecified; M35.00 Sjogren syndrome, unspecified; K20.9 Esophagitis, unspecified; K44.9 Diaphragmatic hernia without obstruction or gangrene; K29.70 Gastritis, unspecified, without bleeding; K50.10 Crohn's disease of large intestine without complications; K64.8 Other hemorrhoids; Z01.810 Encounter for preprocedural cardiovascular examination
CPT/HCPCS: 43239; 45380; 83630; 83993; 87045; 87177; 87328; 87493; 93005; J1610; J2250; J2704; J3010